=== PATIENT | female | born 1940 | race African-American/Black ===

== ENCOUNTER 2017-04-02 18:25 | Emergency (ER) | payer MEDICARE ==
[~2017-04-02] VITALS: Ht 165.1 cm; Wt 59.4 kg
[~2017-04-02 18:25] MED LIST: CLOTRIMAZOLE15 GM TOPIC; no medication
[2017-04-02 18:40] VITALS: BP 156/74
[2017-04-02] MEDS ORDERED: NKM (18:47)
--- NOTE | 2017-04-02 19:13 | Emergency Room Report ---
History of Present Illness General Chief Complaint: Skin Rash/Abscess Source: Patient Present Illness HPI 76 YO Female presents to the ED c/o rash on bilateral wrists, thighs, back, UE' s x 1 week with progression to the neck , face and hair x 2 days. Pt. reports intense itching, with small lesions that have progressed to now be "oozing" clear liquid. denies fevers or chills. Denies lesions/rashes elsewhere on the body. Denies new medications or body washes or creams. Denies swelling of the lips, tongue , throat or airway. Denies wheezing, or shortness of breath. Denies recent travel, recent illness or ill contacts. denies blisters, oral lesions, or sloughing of the skin. Denies CP, Palpitations, LOC, AMS, dizziness, Changes in Vision, Sensation, paresthesias, or a sudden severe headache. Allergies: Coded Allergies: No Known Allergies (Unverified , 04/13/14) Patient History Past Medical History: see triage record Past Surgical History: none Pertinent Family History: none Now: No Immunizations: UTD Reviewed Nursing Documentation: PMH: Agreed, PSxH: Agreed Nursing Documentation-PMH Past Medical History: No Stated History Hx Cardiac Problems: No Hx Cancer: No Hx Gastrointestinal Problems: Yes Hx Neurological Problems: No Review of Systems All Other Systems: negative except mentioned in HPI Physical Exam Vital Signs Date Time Temp Pulse Resp B/P (MAP) Pulse Ox O2 Delivery O2 Flow Rate FiO2 04/02/17 18:40 98.1 16 156/74 98 Room Air 04/02/17 18:40 81 Sp02 EP Interpretation: reviewed, normal General Appearance: alert, GCS 15, non-toxic, mild distress - pt. consistently scratching Head: normocephalic, atraumatic Eyes: bilateral eye normal inspection, bilateral eye PERRL ENT: hearing grossly normal, normal pharynx, no angioedema, normal voice, TMs + canals normal, uvula midline, moist mucus membranes, other - no swelling of the lips or tongue, no oral lesions noted Neck: full range of motion, supple/symm/no masses Respiratory: chest non-tender, lungs clear, normal breath sounds, no respiratory distress, no wheezing, speaking full sentences Cardiovascular #1: regular rate, rhythm, normal capillary refill Gastrointestinal: non tender, soft, no guarding, no rebound Musculoskeletal: back normal, gait/station normal, normal range of motion, non- tender Neurologic: alert, oriented x3, responsive, motor strength/tone normal, sensory intact, normal gait, speech normal Psychiatric: judgement/insight normal, memory normal, mood/affect normal Skin: normal color, warm/dry, well hydrated, rash - multiple small papules in linear appearance to the bilateral wrists, finger webs, UE, Torso, and thighs, there is area of crusting with interstitial appearance of fluid weeping from excoriated lesions on the dorsum of the left hand. all lesions have some degree of surrounding erythema, there are erythematous non blanching plaques generalized on the face. no blisters noted, not notable for vesicles. suspicious of secondary bacterial infection. Lymphatic: no adenopathy Medical Decision Making PA Attestation Dr. muller is my supervising Physician whom patient management has been discussed with. Diagnostic Impression: Primary Impression: Rash and nonspecific skin eruption Additional Impression: Scabies ER Course Pt. presents to the ED c/o rash on bilateral wrists, thighs, back, UE's x 1 week with progression to the neck , face and hair x 2 days. Ddx considered but are not limited to cellulitis, scabies, shingles, varicella, dermatitis, urticaria, eczema, tinea, viral exanthem, SJS Vital signs: are WNL, pt. is afebrile H&PE are most consistent with moderate scabies infestation due to linear appearance and size of lesions, excoriations, localized allergic reaction, and facial dermatitis. no evidence of airway compromise, no swelling of the lips, tongue, or pharynx. negative Niklosky sign. ORDERS: none required at this time, the diagnosis is clinical ED INTERVENTIONS: -60mg Solu-medrol -25mg Benadryl -Re-evaluation : pt. reports her itching is reduced, appearance of facial dermatitis has visual improvement. -Gave pt. strict ED Return precautions immediately for worsening of symptoms, or new symptoms. d/w pt. that dermatological referral is recommended if symptoms are not improving. DISCHARGE: At this time pt. is stable for d/c to home. Will provide printed patient care instructions, and any necessary prescriptions. Care plan and follow up instructions have been discussed with the patient prior to discharge. Last Vital Signs Date Time Temp Pulse Resp B/P (MAP) Pulse Ox O2 Delivery O2 Flow Rate FiO2 04/02/17 18:40 98.1 81 16 156/74 98 Room Air Disposition: HOME, SELF-CARE Condition: Stable Scripts Prednisone (Prednisone) 20 Mg Tablet 40 MG PO DAILY for 5 Days, #10 TAB Prov: Gricel Murillo.A. 04/02/17 Permethrin* (ELIMITE*) 60 Gm Cream..g. 1 APPLIC TOPIC ONCE, #60 GM 3 Refills Apply cream from head to toe; leave on for 8-14 hours before washing off with water; may reapply in 1 week if live mites appear. Prov: Gricel Murillo. 04/02/17 Cephalexin* (KEFLEX*) 500 Mg Capsule 500 MG ORAL EVERY 12 HOURS for 7 Days, #14 CAP 0 Refills Prov: Gricel Murillo. 04/02/17 Bacitracin/Polymyxin B Sulfate (BACITRACIN-POLYMYXIN OINTMENT) 28.35 Gm Oint...g. 1 APPLIC TP BID, #28.3 GM Prov: Gricel Murillo. 04/02/17 Hydrocortisone (Hydrocortisone Cream 2.5%) Y Cream.appl 1 APPLIC TP BID, #28.3 GM Prov: Gricel Murillo. 04/02/17 Diphenhydramine Hcl (BENADRYL ALLERGY) 25 Mg Tablet 25 MG PO Q6HR, #30 TAB Prov: Gricel Murillo. 04/02/17 Referrals: NOT CHOSEN IPA/MD,REFERRING (PCP) Patient Instructions: Rash, Scabies, Pediatric Additional Instructions: Take medications as directed. Follow up with a Primary Care Provider in 3-5 days, even if your symptoms have resolved. Credentialing Manager Evaluation is recommended if symptoms persist. --Please review list of primary care clinics, if you do not already have a primary care provider Return sooner to ED if new symptoms occur, or current symptoms become worse. Do not drink alcohol, drive, or operate heavy machinery while taking Benadryl as this may cause drowsiness. - Please note that this Emergency Department Report was dictated using [employer] sales representative technology software, occasionally this can lead to erroneous entry secondary to interpretation by the dictation equipment. Gricel Murillo Apr 02, 2017 19:13
[2017-04-02] MEDS ORDERED: Solu-MEDROL 125mg Inj IM ONE (19:15)
[2017-04-02] MEDS ORDERED: PREDNISONE20 M1 PO (19:48)
[2017-04-02] MEDS ORDERED: CEPHALEXIN500 MG ORAL (19:48)
[2017-04-02] MEDS ORDERED: BACITRACIN-P28.35 GM TP (19:48)
[2017-04-02] MEDS ORDERED: HYDROCORTISONE30 G2 TP (19:48)
[2017-04-02] MEDS ORDERED: PERMETHRIN60 GM TOPIC (19:48)
[2017-04-02] MEDS ORDERED: BENADRYL ALLERG25 M1 PO (19:48)
[2017-04-02 20:16] VITALS: BP 156/74
[2017-04-02 20:18] VITALS: BP 156/74
== END 2017-04-02 20:19 | disposition home or self-care (01) ==
LOC: EMR 18:42
DX: R21 Rash and other nonspecific skin eruption (principal); B86 Scabies
CPT/HCPCS: 96372; 99284; J2930

== ENCOUNTER 2017-04-04 20:43 | Emergency (ER) | payer MEDICARE ==
[~2017-04-04] VITALS: Ht 165.1 cm; Wt 70.3 kg
[~2017-04-04 20:43] MED LIST changes: +BACITRACIN-P28.35 GM TP; +BENADRYL ALLERG25 M1 PO; +CEPHALEXIN500 MG ORAL; +HYDROCORTISONE30 G2 TP; +NKM; +PERMETHRIN60 GM TOPIC; +PREDNISONE20 M1 PO
[2017-04-04] MEDS ORDERED: DiphenhydrAMINE 50mg/ml Inj IM ONE (21:30)
--- NOTE | 2017-04-04 21:35 | Emergency Room Report ---
History of Present Illness General Chief Complaint: Skin Rash/Abscess Source: Patient Present Illness HPI Is a 76-year-old female with no significant past medical history. She presents with chief complaint of a rash. His been onset for last couple weeks. Is diffuse in nature. Also blistering. Very itchy. She was here couple days ago and prescribe Benadryl and steroid. She has not fill her prescription yet. She said that she's. She can't sleep. Denies any other complaint. No nausea no vomiting. No weight loss. No weakness. Allergies: Coded Allergies: No Known Allergies (Unverified , 04/13/14) Patient History Past Medical History: see triage record, old chart reviewed Past Surgical History: other Pertinent Family History: none Social History: Denies: smoking Now: No Immunizations: other Reviewed Nursing Documentation: PMH: Agreed, PSxH: Agreed Nursing Documentation-PMH Hx Cardiac Problems: No Hx Cancer: No Hx Gastrointestinal Problems: Yes Hx Neurological Problems: No Review of Systems Eye: Denies: eye pain, blurred vision ENT: Denies: ear pain, nose congestion, throat swelling Respiratory: Denies: cough, shortness of breath Cardiovascular: Denies: chest pain, palpitations Gastrointestinal: Denies: abdominal pain, diarrhea, nausea, vomiting Musculoskeletal: Denies: back pain, joint pain Skin: Reports: rash Neurological: Denies: headache, numbness Endocrine: Denies: increased thirst, increased urine Hematologic/Lymphatic: Denies: easy bruising All Other Systems: negative except mentioned in HPI Physical Exam Vital Signs Date Time Temp Pulse Resp B/P (MAP) Pulse Ox O2 Delivery O2 Flow Rate FiO2 04/04/17 21:23 98.1 74 16 100/53 96 Room Air vitals normal Sp02 EP Interpretation: reviewed, normal General Appearance: well appearing, no apparent distress, alert Head: normocephalic, atraumatic Eyes: bilateral eye PERRL, bilateral eye EOMI ENT: hearing grossly normal, normal pharynx Neck: full range of motion, supple, no meningismus Respiratory: chest non-tender, lungs clear, normal breath sounds Cardiovascular #1: regular rate, rhythm, no murmur Gastrointestinal: normal bowel sounds, non tender, no mass, no organomegaly, no bruit, non-distended Musculoskeletal: back normal, gait/station normal, normal range of motion Neurologic: alert, oriented x3 Psychiatric: mood/affect normal Skin: warm/dry, other - Diffuse erythematous malar rash on her hands, face, back. The one on her hands show small blisters. Medical Decision Making Diagnostic Impression: Primary Impression: Dermatitis ER Course Patient with dermatitis. Most likely autoimmune. We'll refer patient to primary care deburring technician venkat director heart. No evidence of sepsis. Patient guarding a prescription for steroids and antibiotics. We'll discharge home. Last Vital Signs Date Time Temp Pulse Resp B/P (MAP) Pulse Ox O2 Delivery O2 Flow Rate FiO2 04/04/17 21:23 98.1 74 16 100/53 96 Room Air Status: improved Disposition: HOME, SELF-CARE Condition: Stable Patient Instructions: Rash Additional Instructions: take your medication. Fill your Prescriptions. Followup with your DrPhilipp in 7 days. Return if worse. SOHAIL KUMARI M.D. Apr 04, 2017 21:35
[2017-04-04 22:00] VITALS: BP_SYST 100; BP_SYST 114; BP_DIAS 53; BP_DIAS 70
== END 2017-04-04 22:00 | disposition home or self-care (01) ==
LOC: EMR 21:50
DX: L30.9 Dermatitis, unspecified (principal)
CPT/HCPCS: 96372; 99283; J1200

== ENCOUNTER 2019-07-04 12:30 | Emergency (ER) | payer MEDICARE ==
[~2019-07-04] VITALS: Ht 162.6 cm; Wt 72.6 kg
[2019-07-04 12:45] VITALS: BP 116/66
--- NOTE | 2019-07-04 12:45 | NUR ---
ED Nurse Note: Patient arrived to ED from home complaining of falling on her left hand while riding the bus. She states that she tripped and fell on the bus and caught herself with her left hand. Pain currently 7/10, aching pain, mostly the wrist. Patient AxO x 4.
--- NOTE | 2019-07-04 13:28 | Emergency Room Report ---
History of Present Illness General Chief Complaint: Upper Extremity Injury Source: Patient Present Illness HPI 79-year-old female with no significant past medical history here complaining of pain and swelling over her left middle and ring finger x2 days. Patient reports that she fell on outstretched hand, noticed bruising on those 2 fingers , rating pain 10 out of 10 at this time. Has not taken medication for symptom relief. Has reduced range of motion especially with flexion of those 2 digits. Denies tingling and numbness. Denies other injuries, loss of consciousness, head injury, chest pain, shortness of breath, palpitation, no other associated symptoms. Patient is currently not on any blood thinners Allergies: Coded Allergies: No Known Allergies (Unverified , 04/13/14) Patient History Past Medical History: see triage record Past Surgical History: none Pertinent Family History: none Now: No Immunizations: UTD Reviewed Nursing Documentation: PMH: Agreed; PSxH: Agreed Nursing Documentation-PMH Past Medical History: No Stated History Hx Cardiac Problems: No Hx Cancer: No Hx Gastrointestinal Problems: Yes Hx Neurological Problems: No Review of Systems All Other Systems: negative except mentioned in HPI Physical Exam Vital Signs Date Time Temp Pulse Resp B/P (MAP) Pulse Ox O2 Delivery O2 Flow Rate FiO2 07/04/19 12:38 97.3 69 17 116/66 (83) 97 Room Air Sp02 EP Interpretation: reviewed, normal General Appearance: no apparent distress, alert, GCS 15, non-toxic Head: normocephalic, atraumatic Eyes: bilateral eye normal inspection, bilateral eye PERRL ENT: hearing grossly normal, normal pharynx, no angioedema, normal voice Neck: full range of motion, supple/symm/no masses Respiratory: chest non-tender, lungs clear, normal breath sounds, no rhonchi, no retraction, no wheezing, speaking full sentences Cardiovascular #1: regular rate, rhythm, no edema, no murmur, normal capillary refill Gastrointestinal: non tender, soft, no mass Rectal: deferred Genitourinary: no CVA tenderness Musculoskeletal: back normal, no calf tenderness, pelvis stable, tender - left middle finger, swelling - left ring and middle finger Neurologic: alert, motor strength/tone normal, oriented x3, sensory intact, responsive, speech normal Psychiatric: judgement/insight normal, memory normal, mood/affect normal, no suicidal/homicidal ideation Skin: other - eccymosis left ring and middle finger Lymphatic: no adenopathy Procedures Splinting Splinting : Consent: Verbal Location: left ring and middle finger Pre-Made Type: metal Pre-Proc Neuro Vasc Exam: normal Post-Proc Neuro Vasc Exam: normal Patient Tolerated: Well Complications: None Medical Decision Making PA Attestation All my diagnosis and treatment plans were reviewed ad discussed with my supervising physician Dr. Cassidy Diagnostic Impression: Primary Impression: Fracture of phalanx of left middle finger Additional Impression: Contusion of left ring finger ER Course 79-year-old female with no significant past medical history here complaining of pain and swelling over her left middle and ring finger x2 days. Patient reports that she fell on outstretched hand, noticed bruising on those 2 fingers , rating pain 10 out of 10 at this time. Has not taken medication for symptom relief. Has reduced range of motion especially with flexion of those 2 digits. Denies tingling and numbness. Denies other injuries, loss of consciousness, head injury, chest pain, shortness of breath, palpitation, no other associated symptoms. Patient is currently not on any blood thinners Ddx considered but are not limited to: Finger fracture, contusion, sprain, strain Vital signs: are WNL, pt. is afebrile H&PE are most consistent with : Fracture of phalanx of left middle finger, contusion of left ring finger ORDERS: Hand x-ray, [facility] ED INTERVENTIONS: Splint DISCHARGE: At this time pt. is stable for d/c to home. Will provide printed patient care instructions, and any necessary prescriptions. Care plan and follow up instructions have been discussed with the patient prior to discharge. Patient to follow-up with auto radiator specialist, take medication as directed, keep splint on until seen by auto radiator specialist, if worsening symptoms return to the emergency room, I gave patient a list of free clinics as well as orthopedic clinic to go to. Patient reports that she does not have a primary care provider. Other X-Ray Diagnostic Results Other X-Ray Diagnostic Results : X-Ray ordered: Left hand # of Views/Limited Vs Complete: 3 View Indication: Pain EP Interpretation: Yes PA Xray: Interpretation reviewed, by supervising MD, and agrees with findings. Interpretation: other - left third digit's fx Impression: Other - Left third digit's fx Electronically Signed by: Jonathan Tee PA-C Last Vital Signs Date Time Temp Pulse Resp B/P (MAP) Pulse Ox O2 Delivery O2 Flow Rate FiO2 07/04/19 12:45 97.3 78 17 116/66 97 Room Air Disposition: HOME, SELF-CARE Condition: Stable Scripts Methocarbamol* (ROBAXIN-500*) 500 Mg Tablet 500 MG ORAL TID, #10 TAB 0 Refills Prov: Jonathan Gordon 07/04/19 Ibuprofen* (MOTRIN*) 600 Mg Tablet 600 MG ORAL Q8H PRN for For Pain, #30 TAB 0 Refills Prov: Jonathan Gordon 07/04/19 Patient Instructions: Contusion, Finger Fracture, [id number] Additional Instructions: Take medication as directed, follow-up with your primary care and auto radiator specialist, worsening symptoms return to the emergency room Jonathan Gordon Jul 04, 2019 13:28
[2019-07-04] MEDS ORDERED: IBUPROFEN600 MG ORAL (13:29)
[2019-07-04] MEDS ORDERED: ROBAXIN-500MG ORAL (13:29)
--- NOTE | 2019-07-04 13:34 | NUR ---
ED Nurse Note: Patient refused curved finger splint stating that she does not want the fingers immobilized. Finger cot placed instead, Jonathan MCCONNELL aware. Patient verbalized understanding that she will need to f/u with Orthopedics.
[2019-07-04 13:38] VITALS: BP 131/82
--- NOTE | 2019-07-05 18:34 | Diagnostic Imaging Report ---
Indication: Pain, trauma Technique: 3 views left hand Comparison: none Findings: No acute fractures. No dislocations. There is an old healed fracture deformity of the fifth intercarpal. There is degenerative narrowing of the second through fifth distal interphalangeal joints and of the first carpometacarpal joint. Bones appear osteoporotic. Impression: Degenerative changes as described. No acute bony trauma
== END 2019-07-04 13:38 | disposition home or self-care (01) ==
LOC: EMR 13:35
DX: S62.603A Fracture of unspecified phalanx of left middle finger, initial encounter for closed fracture (principal); S60.042A Contusion of left ring finger without damage to nail, initial encounter; M81.0 Age-related osteoporosis without current pathological fracture; W19.XXXA Unspecified fall, initial encounter; Y92.9 Unspecified place or not applicable
CPT/HCPCS: 29130; 99283